=== PATIENT | male | born 1970 | race Caucasian/White ===

== ENCOUNTER 2019-05-16 09:19 | Outpatient (CLI) | payer OTHER, SELFPAY ==
--- NOTE | ~2019-05-16 | XR_ITS ---
EXAMINATION: XR small bowel follow through EXAM DATE: 05/16/2019 12:22 INDICATION: History of complete colon resection 20 years ago due to inflammatory bowel disease, colit is, toxic megacolon. Diarrhea, pouchitis, Crohn's. TECHNIQUE: Host And Hostess radiograph was acquired. Small bowel series was performed with thin barium solutio n. Additional water-soluble Omnipaque solution was administered at 30 minutes time. Spot images of th e terminal ileum were acquired. A total of 8 KUB images were obtained. Fluoroscopy was attempted but equipment malfunctioned. The last 2 images were oblique KUB exams in place of fluoroscopy. FINDINGS: Large anterior abdominal wall mesh. On the 10 and 30 minute projections there is normal-ata earing jejunum and proximal ileum. On the 65 minute image the distal aspect of the ileum is severely distended with intraluminal material, stool. Additionally, these segments have nearly absent fold pat tern, which could be from the chronic distention and/or inflammatory bowel disease. IMPRESSION: Severely distended distal ileum with loss of normal fold pattern, could be from distenti on and/or inflammatory bowel disease. Normal proximal and mid small bowel. Reviewed, dictated and finalized at location B. S ACCOUNT LEADER IMPRESSION: Severely distended distal ileum with loss of normal fold pattern, could be from distention and/or inflammatory bowel disease. Normal proximal and mid small bowel.
== END 2019-05-16 09:20 | disposition home or self-care (01) ==
PROVIDERS: PCP Internal Medicine
DX: K50.919 Crohn's disease, unspecified, with unspecified complications (principal)
CPT/HCPCS: 74250

== ENCOUNTER 2019-12-26 09:01 | Outpatient (CLI) | payer OTHER, SELFPAY ==
--- NOTE | 2019-12-28 12:19 | WPDHOLTEREM ---
Holter/Event Monitor Holter/Event Monitor Date of procedure: 12/26/19 Procedure Type: 48 hour holter monitor Indications: Tachycardia Conclusion: 1. 48 hour holter monitor on 12/26/19. 2. Predominant rhythm is sinus rhythm. HR range 48-148 bpm; average HR 90 bpm. 3. There are 314 premature supraventricular complexes, 9 supraventricular couplets and 2 supraventricular triplets, 11 supraventricular bigeminy. There are 2 runs of atrial tachycardia, fastest at 120 bpm and longest lasting 5 beats. 4. There are 455 premature ventricular complexes and 3 ventricular couplets. No ventricular tachycardia. 5. No sinoatrial or atrioventricular blocks. No significant pauses greater than 2 seconds. 6. No symptoms available for correlation.
== END 2019-12-26 09:02 | disposition home or self-care (01) ==
PROVIDERS: PCP Internal Medicine; Visit Provider Nurse Practitioner
DX: R00.0 Tachycardia, unspecified (principal)
CPT/HCPCS: 93225; 93226

== ENCOUNTER 2020-01-08 08:24 | Outpatient (CLI) | payer OTHER, SELFPAY ==
--- NOTE | 2020-01-08 08:40 | EST_ITS ---
Patient Info Name: Zen Pineda Age: 49 years : 1970 Gender: Male Ht: 70 in Wt: 225 lbs BSA: 2.28 m2 HR: 76 bpm BP: 141 / 93 mmHg Technical Quality: Good Exam Date: 01/08/2020 9:15 AM Exam Location: [facility] Patient Status: Outpatient Admit Date: 01/08/2020 Staff Ordering Physician: Holly Orlando Bone Drier: Latha Mendes RDCS Attending Provider: CHANNING MURRIETA DO Referring Physician: Darion BARKSDALE; Exercise Technologist: Yoko Tatum RDCS Exercise Physician: Channing Murrieta DO Exam Type: CA stress echo Study Info Indications R00.0 - Tachycardia, unspecified Treadmill exercise stress echocardiogram is performed. Summary 1. 1. Negative Erik exercise stress test for ischemic ST changes by ECG criteria. 2. 2. Good functional capacity, achieving 12 METs of workload. 3. 3. Baseline hypertension. 4. 4. Appropriate HR response to exercise. 5. 5. Appropriate HR recovery at 1 minute post exercise. 6. 6. Negative stress echocardiogram for ischemia by wall motion analysis. 7. 7. Patient informed of the above results. Stress Echo Findings Left Ventricle Appropriate increase in LV endocardial thickening with systole. Appropriate augmentation of contractility with systole. No wall motion abnormality. Left Ventricle Normal LV systolic function, no wall motion abnormality. Protocol: Erik Stress ECG Details Stage: REST Duration (min): 6 min : 5 sec Speed (mph): 0.0 Grade (%): 0 HR (bpm): 76 SBP (mmHg): 141 DBP (mmHg): 93 METS: --- Stage: REST Duration (min): 18 min : 51 sec Speed (mph): 0.0 Grade (%): 0 HR (bpm): 83 SBP (mmHg): 141 DBP (mmHg): 93 METS: --- Stage: STAGE 1 Duration (min): 1 min : 0 sec Speed (mph): 1.7 Grade (%): 10 HR (bpm): 103 SBP (mmHg): 141 DBP (mmHg): 93 METS: --- Stage: STAGE 1 Duration (min): 2 min : 0 sec Speed (mph): 1.7 Grade (%): 10 HR (bpm): 108 SBP (mmHg): 141 DBP (mmHg): 93 METS: --- Stage: STAGE 1 Duration (min): 3 min : 0 sec Speed (mph): 1.7 Grade (%): 10 HR (bpm): 111 SBP (mmHg): 161 DBP (mmHg): 91 METS: --- Stage: STAGE 2 Duration (min): 1 min : 0 sec Speed (mph): 2.5 Grade (%): 12 HR (bpm): 119 SBP (mmHg): 161 DBP (mmHg): 91 METS: --- Stage: STAGE 2 Duration (min): 2 min : 0 sec Speed (mph): 2.5 Grade (%): 12 HR (bpm): 121 SBP (mmHg): 169 DBP (mmHg): 100 METS: --- Stage: STAGE 2 Duration (min): 3 min : 0 sec Speed (mph): 2.5 Grade (%): 12 HR (bpm): 124 SBP (mmHg): 169 DBP (mmHg): 100 METS: --- Stage: STAGE 3 Duration (min): 1 min : 0 sec Speed (mph): 3.4 Grade (%): 14 HR (bpm): 129 SBP (mmHg): 169 DBP (mmHg): 98 METS: --- Stage: STAGE 3 Duration (min): 2 min : 0 sec Speed (mph): 3.4 Grade (%): 14 HR (bpm): 133 SBP (mmHg): 169 DBP (mmHg): 98 METS: ---
== END 2020-01-08 08:25 | disposition home or self-care (01) ==
PROVIDERS: PCP Internal Medicine; Visit Provider Nurse Practitioner
DX: R00.0 Tachycardia, unspecified (principal)
CPT/HCPCS: 93351

== ENCOUNTER 2021-01-12 15:36 | Emergency (ER) | payer OTHER, SELFPAY ==
--- NOTE | ~2021-01-12 | XR_ITS ---
XR chest 2V DATE: 01/12/2021 16:10 INDICATION: HB-1 TECHNIQUE: 2 views COMPARISON: None FINDINGS: Normal heart size. No hilar or mediastinal enlargement. No pulmonary infiltrate or consolid ation, pleural effusion or pulmonary vascular congestion or pneumothorax is detected. Degenerative spurring of the thoracic spine. IMPRESSION: No active cardiac pulmonary disease Reviewed, dictated and finalized at location B.
[2021-01-12 15:57] VITALS: BP 120/95; PULSE 109; RESP 20; TEMP 37.1; O2SAT 96
--- NOTE | 2021-01-12 16:48 | ED.URI ---
HPI - URI/Sore Throat General Chief Complaint: Upper Respiratory Infection Stated Complaint: High blood pressure,swollen ankle Source: patient and RN notes reviewed Limitations: no limitations History of Present Illness HPI Narrative: The patient-- on a few meds for hypertension, Crohn's--presents with ankle edema. Patient states he has 1/2-month worsening of half year history of bilateral ankle edema that is mild, worse with activity, better with elevation. Patient neglects to mention chart has 2 prior phone call/ consults for same this year for edema, gynecomastia and anxiety. This is associated with 3-month history of increasing weight gain [215#?262#]. exertional SOB. Today he was seen by his GI Crohn's doctors and told get checked, so he came here. He reports he had prior noncontributory lab test in the last quarter, and stress test years ago. No chest?abdominal pain, ; no fever, vomiting, loss of taste/smell CP nausea/vomiing , sneezing/wheezing. Patient declines same-day hospital referral for continued testing AMA. He has been on diuretics in past and is out. Incidentally patient arrives wearing his father's oxygen COPD concentrator mask which he prefers over facemasks Related Data Home Medications Medication Instructions Recorded Confirmed epinephrine 0.3 mg/0.3 mL 0.3 mg IM ONCE 05/28/19 01/12/21 injection, auto-injector metronidazole 500 mg tablet 500 mg PO Q12H 12/14/19 01/12/21 vedolizumab 300 mg intravenous 300 mg IVPB ONCE 12/14/19 01/12/21 solution Allergies Allergy/AdvReac Type Severity Reaction Status Date / Time No Known Allergies Allergy Verified 01/12/21 16:59 Review of Systems Review of Systems: General/Constitutional: No weight loss,fever Eyes: N0: Redness,discharge Ears/Nose/Throat: No: Epistaxis,ear discharge Respiratory: Denies: Hemoptysis Gastrointestinal: No Vomiting, Bleeding-rectal Skin: No Lumps, eruption Neurologic: No Focal Weakness,Sz Hematologic: Denies: Petechiae/Purpura Psychiatric: No: Suicida ideationl All Other Systems: Reviewed and Negative [facility] Past Medical History Medical History (Updated 01/14/21 @ 21:30 by Frankie Bright MD) Numbness of left hand Social History Social History Smoking packs per day: 1 Smoking cigarettes per day: 20.0 Years smoked: 25 Smoking pack-years: 25.00 Smoking status: Former smoker Tobacco type: cigarettes Smoking end date: 01/02/19 Alcohol intake: current Substance use: never Comments At time of signature, agree with nursing past medical, surgical, social and family history. There is no relevant family history pertinent to the presenting complaint Exam Narrative: General Appearance: Well appearing, No distress EYE: PERRLA, Conjunctiva clear Ears: External ear normal Nose: Normal nose Mouth/Throat: Normal appearing, Normal lips Neck: Supple Respiratory: Airway patent, No respiratory distress Cardiovascular: RRR Abdomen: Soft, Non-tender, Musculoskeletal: Full ROM Skin: Warm, Dry Neurological: A&O x3, CN II-X intact Psychiatric: Normal mood, Normal affect Course Course Emergency Course: XRAY reviewed, agree w/ radiologist Normal, see report Vital Signs Vital signs: Vital Signs Temperature 98.8 F 01/12/21 15:57 Pulse Rate 109 H 01/12/21 15:57 Respiratory Rate 20 01/12/21 15:57 Blood Pressure 120/95 H 01/12/21 15:57 Pulse Oximetry 96 01/12/21 15:57 Temperature 98.8 F 01/12/21 15:57 Pulse Rate 109 H 01/12/21 15:57 Respiratory Rate 20 01/12/21 15:57 Blood Pressure 120/95 H 01/12/21 15:57 Pulse Oximetry 96 01/12/21 15:57 MDM - URI/Sore Throat Lab Data Labs: Lab Results 01/12/21 Range/Units 16:02 POC SARS CoV-2 Ag Negative (Negative) Discharge Plan Discharge Clinical Impression: Ankle edema, bilateral, Essential hypertension Patient Disposition: Home, Self-Care C
== END 2021-01-12 17:51 | disposition home or self-care (01) ==
PROVIDERS: Emergency Provider Emergency Medicine; PCP Internal Medicine
DX: R60.9 Edema, unspecified (principal); I10 Essential (primary) hypertension; K50.90 Crohn's disease, unspecified, without complications; Z87.891 Personal history of nicotine dependence; Z20.822 Contact with and (suspected) exposure to COVID-19
CPT/HCPCS: 71046; 87426; 99213; C9803; G0463

== ENCOUNTER 2021-01-20 18:08 | Emergency (ER) | payer OTHER, SELFPAY ==
--- NOTE | ~2021-01-20 | XR_ITS ---
EXAMINATION: XR finger 1st LT min 2V EXAM DATE: 01/20/2021 18:29 INDICATION: Pain Mid Left Thumb X 2 Days No Injury TECHNIQUE: Left 1st finger frontal, lateral and oblique projections obtained and reviewed. There i s no prior study for comparison. FINDINGS: Mild hyperextension at the MCP joint which could be positional. There are no acute left 1st finger fractures or dislocations identified. There is no subcutaneous gas. The soft tissue is unre markable. There are no radiopaque foreign bodies. IMPRESSION: Mild hyperextension at the MCP joint which could be positional. Reviewed, dictated and finalized at location A.
[2021-01-20 18:14] VITALS: BP 173/106; PULSE 78; RESP 18; TEMP 36.8; O2SAT 97
[2021-01-20 18:19] VITALS: BP 173/106; PULSE 78; RESP 18; TEMP 36.8; O2SAT 97
--- NOTE | 2021-01-20 18:21 | ED.EXTPRO ---
HPI - Extremity Problem General Chief complaint: Extremity Problem,Nontraumatic Stated complaint: lt hand thumb Time Seen by Provider: 01/20/21 18:21 Source: patient, family and RN notes reviewed Mode of arrival: ambulatory Limitations: no limitations History of Present Illness HPI Narrative: 50 year old male present to express care with complaints of pain to his left thumb fort he past 2 day duration. Patient does not know of any injury but states that he must of had injury if it hurts. he states that when he hyperextends his thumb it hurts and when he releases thumb to normal position it pops. No swelling, ecchymosis or any redness noted to left thumb. Patient denies any tingling or numbness to his left hand, strong left radial pulse with brisk capillary refill to nail bed of left thumb. Patient arrives wearing oxygen face mask hooked to fathers oxygen concentrator which he states he prefers over face mask MD Complaint: extremity pain Related Data Home Medications Medication Instructions Recorded Confirmed epinephrine 0.3 mg/0.3 mL 0.3 mg IM ONCE 05/28/19 01/12/21 injection, auto-injector metronidazole 500 mg tablet 500 mg PO Q12H 12/14/19 01/12/21 vedolizumab 300 mg intravenous 300 mg IVPB ONCE 12/14/19 01/12/21 solution Allergies Allergy/AdvReac Type Severity Reaction Status Date / Time No Known Allergies Allergy Verified 01/12/21 16:59 Review of Systems Review of Systems: CONSTITUTIONAL: Denies fever, chills, or sweats. EYES: Denies visual changes, redness, or discharge. ENT: Denies rhinorrhea, congestion, sore throat, or otalgia. CARDIOVASCULAR: Denies chest pain, palpitations, or edema. RESPIRATORY: Denies cough or dyspnea. GASTROINTESTINAL: Denies abdominal pain, nausea, vomiting, or diarrhea. GENITOURINARY: Denies dysuria or hematuria. SKIN: Denies rash or itching. MUSCULOSKELETAL: Denies back pain,reports left thumb joint pain, or myalgia. NEUROLOGIC: Denies headache, numbness, or weakness. PSYCHIATRIC: Positive history of anxiety or depression. All systems reviewed & are unremarkable except as noted in HPI and below PMFSH Past Medical History Medical History (Updated 01/20/21 @ 19:22 by Gissel Singh NP) Anxiety Crohn's disease, small intestine Hypertension Numbness of left hand Surgical History Surgical History (Updated 01/20/21 @ 19:15 by Gissel Singh NP) H/O inguinal hernia repair History of total colectomy Family History Family History (Updated 01/20/21 @ 19:20 by Gissel Singh NP) Other No significant family history Social History Social History Smoking packs per day: 1 Smoking cigarettes per day: 20.0 Years smoked: 25 Smoking pack-years: 25.00 Smoking status: Former smoker Tobacco type: cigarettes Smoking end date: 01/02/19 Alcohol intake: current Substance use: never Comments At time of signature, agree with nursing past medical, surgical, social and family history. There is no relevant family history pertinent to the presenting complaint Exam Narrative: GENERAL: Well-appearing, well-nourished, and in no acute distress. HEAD: Normocephalic, atraumatic. EYES: PERRLA and EOMI. ENT: Nares clear, no rhinorrhea or epistaxis. Mucous membranes moist. NECK: Supple.no lymphadenopathy CHEST: Clear to auscultation. No respiratory distress.SAO2 97% on room air HEART: Regular rate and rhythm. No murmur heard. Normal peripheral pulses. ABDOMEN: Soft, nontender, nondistended, normal active bowel sounds. EXTREMITIES: Normal range of motion. No edema, no redness to left thumb or any bruising note. Patient states popping in his thumb when he hyperextends thumb and then returns tod SKIN: Warm, dry, no rash. NEURO: No focal deficits. Alert and oriented x3. Course Vital Signs Vital signs: Vital Signs Temperature 36.8 C 01/20/21 18:14 Pulse Rate 78 01/20/21 18:14 Respiratory Rate 18 01/20/21 18
== END 2021-01-20 18:46 | disposition home or self-care (01) ==
PROVIDERS: Emergency Provider Registered Nurse
DX: M79.645 Pain in left finger(s) (principal); Z87.891 Personal history of nicotine dependence; K50.90 Crohn's disease, unspecified, without complications; I10 Essential (primary) hypertension
CPT/HCPCS: 73140; 99213; G0463

== ENCOUNTER 2021-03-02 14:42 | Outpatient (CLI) | payer OTHER, SELFPAY ==
--- NOTE | 2021-03-02 | ECHO_ITS ---
Patient Info Name: Zen Pineda Age: 50 years : 1970 Gender: Male Ht: 69 in Wt: 258 lbs BSA: 2.44 m2 HR: 78 bpm BP: 136 / 93 mmHg Heart Rhythm: Sinus Rhythm Technical Quality: Good Exam Date: 03/02/2021 3:14 PM Exam Location: [facility] Patient Status: Outpatient Admit Date: 03/02/2021 Staff Ordering Physician: Mj Briceno Supervisor Jewelry Department: Martha Esparza RDCS Attending Provider: Mj Briceno Exam Type: CA echo doppler color flow Study Info Indications - RIVERA Complete two-dimensional, color flow and Doppler transthoracic echocardiogram is performed. Summary 1. Complete two-dimensional, color flow and Doppler transthoracic echocardiogram is performed. 2. Left ventricular systolic function is normal, estimated at 55-60%. 3. The left ventricular diastolic function is normal. 4. Left atrial chamber dimension is mildly enlarged. 5. The mitral valve has normal leaflets. Left Ventricle Left ventricular chamber dimension is normal. Left ventricular systolic function is normal, estimated at 55-60%. The left ventricular diastolic function is normal. Right Ventricle Right ventricular chamber dimension is normal. Left Atria Left atrial chamber dimension is mildly enlarged. Right Atria Right atrial chamber dimension is normal. Aortic Valve The aortic valve is normal. Pulmonic Valve The pulmonic valve is normal. Mitral Valve The mitral valve has normal leaflets. There is no mitral valve regurgitation. Tricuspid Valve The tricuspid valve leaflets are normal. Pericardium/Pleural The pericardium appears normal. Aorta The aortic root size at the sinus of Valsalva is normal. Left Ventricular Outflow Tract Name Value Normal LVOT 2D LVOT Diameter 2.1 cm LVOT Doppler LVOT Peak Gradient 6 mmHg LVOT Mean Gradient 4 mmHg LVOT VTI 25 cm LVOT VTI/AV VTI Ratio 0.9 LVOT Stroke Volume 89 ml LVOT CO 19.3 l/min LVOT CI 7.9 l/min/m2 Pulmonic Valve Name Value Normal PV Doppler PV Peak Gradient 7 mmHg Mitral Valve Name Value Normal MV Doppler MV Decel Johnson 237 cm/s2 MV PHT 63 ms MV Area (PHT) 3.5 cm2 4.0-5.0 MV Diastolic Function MV E Peak Velocity 52 cm
== END 2021-03-02 14:43 | disposition home or self-care (01) ==
LOC: ANHCARD 14:45
PROVIDERS: PCP Internal Medicine
DX: R06.02 Shortness of breath (principal)
CPT/HCPCS: 93306

== ENCOUNTER 2022-08-29 01:47 | Emergency (ER) | payer OTHER, SELFPAY ==
[2022-08-29 01:52] VITALS: BP 153/112; PULSE 123; RESP 16; TEMP 36.5; O2SAT 99
--- NOTE | 2022-08-29 03:18 | PC.NURSE ---
Patient given colostomy change supplies and new bag placed.
--- NOTE | 2022-08-29 03:23 | ED.GENADULT ---
HPI - General Adult General Chief complaint: Unspecified Stated complaint: colostomy issue Time Seen by Provider: 08/29/22 02:05 History of Present Illness HPI narrative: this is a 51-year-old male presenting to ED for a colostomy dressing. Patient recently had a bowel resection at [facility] that had several complications resulting in him needing a colostomy bag as well as a wound VAC in a dehisced abdominal incision. Patient is here today because his colostomy had come off and there was some fecal matter in the dressing for his wound VAC. He is asking for a colostomy bag. Related Data Home Medications Medication Instructions Recorded Confirmed epinephrine 0.3 mg/0.3 mL 0.3 mg IM ONCE 05/28/19 11/10/21 injection, auto-injector (EpiPen) vedolizumab 300 mg intravenous 300 mg IV ONCE 12/14/19 11/10/21 solution (Entyvio) lisinopril 10 mg tablet 10 mg PO DAILY 09/08/21 11/10/21 pantoprazole 20 mg tablet,delayed 20 mg PO QAM 09/08/21 11/10/21 release Allergies Allergy/AdvReac Type Severity Reaction Status Date / Time No Known Allergies Allergy Verified 05/17/22 14:39 [facility] Past Medical History Medical History Anxiety Anxiety Crohn's disease, small intestine Hypertension Numbness of left hand Surgical History Surgical History H/O inguinal hernia repair History of total colectomy Family History Family History Other No significant family history Social History Social History Smoking packs per day: 1 Smoking cigarettes per day: 20.0 Years smoked: 25 Smoking pack-years: 25.00 Smoking status: Former smoker Tobacco type: cigarettes Smoking end date: 01/02/19 Alcohol intake: current Alcohol use details: social Substance use: never Substance use type: does not use Lack of Transportation: No Lack of Food: Never True Current Housing: I Have Housing Concerned About Future Housing: No Difficulty Paying Gas/Electric Bills: No Difficulty Paying for Meds: YES Currently Unemployed: No Education: Trade/Vocational Certificate Difficulty w/ Childcare or Family Care: No Exam Narrative: APPEARANCE: No apparent distress. Head: atraumatic. EYES: EOMI, NOSE: Atraumatic NECK: Trachea midline RESPIRATORY: No increased rate of breathing CARDIOVASCULAR: RRR, ABDOMINAL: colostomy in the right side of the abdomen with no dressing on it. There is a abdominal incision with a wound VAC in place. Part of the Tegaderm over the wound VAC has fecal matter in it. No surrounding cellulitis or infection. MUSCULOSKELETAl: No obvious deformities NEURO: Alert. Moving 4/4 extremities SKIN:: Warm, dry. Normal color PSYCHIATRIC: Normal affect Course Vital Signs Vital signs: Vital Signs Temperature 97.7 F 08/29/22 01:52 Pulse Rate 123 H 08/29/22 01:52 Respiratory Rate 16 08/29/22 01:52 Blood Pressure 153/112 H 08/29/22 01:52 Pulse Oximetry 99 08/29/22 01:52 Oxygen Delivery Room Air 08/29/22 01:52 Temperature 97.7 F 08/29/22 01:52 Pulse Rate 123 H 08/29/22 01:52 Respiratory Rate 16 08/29/22 01:52 Blood Pressure 153/112 H 08/29/22 01:52 Pulse Oximetry 99 08/29/22 01:52 Oxygen Delivery Room Air 08/29/22 01:52 Medical Decision Making [facility] Narrative Medical decision making narrative: -Presentation: 51-year-old male presenting with colostomy bag malfunction in fecal matter in his wound VAC site. Patient is requesting a colostomy bag. He requested that we clean out and re-dress his wound VAC although those services are not available at this time 3am. -DDX includes but is not limited to: colostomy back failure -Co-morbidities complicating care: recent bowel resection with wound dehiscence and colostomy, Crohn's diseas
--- NOTE | 2022-08-29 03:43 | PC.NURSE ---
Patient refused to have wound vac dressing changed, stated were just going to go back to [place].
== END 2022-08-29 03:45 | disposition home or self-care (01) ==
PROVIDERS: Emergency Provider Emergency Medicine; PCP Family Medicine
DX: Z43.3 Encounter for attention to colostomy (principal); K50.90 Crohn's disease, unspecified, without complications; I10 Essential (primary) hypertension; Z90.49 Acquired absence of other specified parts of digestive tract; Z87.891 Personal history of nicotine dependence
CPT/HCPCS: 99282